=== PATIENT | female | born 1975 | race Caucasian/White ===

== ENCOUNTER 2018-07-05 15:10 | Emergency (ER) | END 2018-07-05 18:58 | disposition home or self-care (01) ==

== ENCOUNTER → 2019-02-19 | Emergency (ER) | payer MEDICAID ==
[~2019-02-19] VITALS: Ht 162.6 cm; Wt 62.2 kg
[~2019-02-19] MED LIST: DOCU-144 PO; FLUC150T PO; GLYC1SUP92 PR; MAGN296S40 PO; POLY17PO6 PO
[2019-02-19 13:44] VITALS: BP 158/77; PULSE 72; RESP 16; Ht 162.6 cm; Wt 62.2 kg
--- NOTE | 2019-02-19 13:47 | EN ---
Date/Time of Note Date/Time of Note DATE: 02/19/19 TIME: 13:47 ER Progress Note 44-year-old female presents with 3-day history dysuria and complaints of constipation. Well-appearing. ED 2 appropriate. SHARIFA WEBB MD Feb 19, 2019 13:47
--- NOTE | 2019-02-19 13:50 | ERD ---
ER Documentation Chief Complaint Chief Complaint pt c/o dysuria and constipation x 3 days HPI The patient is a 44-year-old female, presenting to the ER because of constipation, dysuria for 3 days, had similar symptoms previously, denies fever, chills, neck pain, chest pain, dyspnea, vomiting, diarrhea. She does not smoke, drinks socially, recently finished her menses yesterday Medical/surgical history: None ROS All systems reviewed and are negative except as per history of present illness. Medications Home Meds Active Scripts Fluconazole* (Diflucan*) 150 Mg Tablet, 150 MG PO ONCE, #2 TAB Prov:SADAF DUNHAM PA-C 07/05/18 Allergies Allergies: Coded Allergies: No Known Allergy (Unverified , 07/05/18) PMhx/Soc Hx Alcohol Use: No Hx Substance Use: No Hx Tobacco Use: No Physical Exam Vitals Vital Signs Date Temp Pulse Resp B/P (MAP) Pulse Ox O2 O2 Flow FiO2 Time Delivery Rate 02/19/19 98.1 72 16 158/77 98 13:44 (104) Physical Exam Const: No acute distress. Head: Atraumatic. Eyes: Normal Conjunctiva. ENT: Normal External Ears, Nose and Mouth. Neck: Full range of motion. No meningismus. Resp: Clear to auscultation bilaterally. Cardio: Regular rate and rhythm. Abd: Soft, non distended, normal bowel sounds, non tender. Skin: No petechiae or rashes. Back: No midline or flank tenderness. Ext: No cyanosis, or edema. Neur: Awake and alert. No focal deficit Psych: Normal Mood and Affect. Results 24 hrs Laboratory Tests Test 02/19/19 14:15 02/19/19 14:17 POC Beta HCG, Qualitative NEGATIVE Bedside Urine pH (LAB) 6.0 Bedside Urine Protein (LAB) Negative Bedside Urine Glucose (UA) Negative Bedside Urine Ketones (LAB) Negative Bedside Urine Blood Trace-intact Bedside Urine Nitrite (LAB) Negative Bedside Urine Leukocyte Esterase (L Trace Procedures/MDM MEDICAL MAKING DECISION: The patient is a 44-year-old female, presenting with constipation and dysuria, she does not have acute cystitis, she is stable for outpatient follow-up The differential diagnoses considered include but are not limited to cholelithiasis, cholecystitis, choledocholithiasis, cholangitis, pancreatitis, hepatitis, gastritis, peptic ulcer disease, gastric ulcer, appendicitis, cystitis, diverticulitis, partial small bowel obstruction. Departure Diagnosis: Primary Impression: Constipation Condition: Good Comments She was discharged with MiraLAX I discussed the findings with the patient. I advised the patient to follow-up with the primary physician in about 1-2 days, sooner if needed and return if any concern. Disclaimer: Inadvertent spelling and grammatical errors are likely due to EHR/dictation software use and do not reflect on the overall quality of patient care. Also, please note that the electronic time recorded on this note does not necessarily reflect the actual time of the patient encounter. NETO MACIEL MD Feb 19, 2019 13:50
== END | disposition home or self-care (01) ==
LOC: FTE 13:40
DX: K59.00 Constipation, unspecified (principal)
CPT/HCPCS: 81003; 81025; Z7502; 99282

== ENCOUNTER 2019-02-22 14:09 | Emergency (ER) | payer MEDICAID ==
[~2019-02-22] VITALS: Ht 160 cm; Wt 61.9 kg
[2019-02-22 14:14] VITALS: BP 131/69; PULSE 89; RESP 18; Ht 160 cm; Wt 61.9 kg
--- NOTE | 2019-02-22 14:40 | ERD ---
ER Documentation Chief Complaint Chief Complaint constipation x few days. states small bm today HPI 44-year-old female is here with constipation. She was seen here 3 days ago and given MiraLAX which she did state helps and states today she had a small bowel movement mild abdominal pain. No vomiting. No fever. ROS All systems reviewed and are negative except as per history of present illness. Medications Home Meds Active Scripts Magnesium Citrate* (Magnesium Citrate*) 296 Ml Solution, 150 ML PO ONCE, #1 BOTTLE Prov:CARMEN CRAFT PA-C 02/22/19 Glycerin* (Glycerin (Adult)*) 1 Each Supp.rect, 1 EACH NE DAILY PRN for CONSTIPATION for 5 Days, SUPP.RECT Prov:CARMEN CRAFT PA-C 02/22/19 Docusate Sodium* (Colace*) 100 Mg Capsule, 100 MG PO TID, #30 CAP Prov:CARMEN CRAFT PA-C 02/22/19 Polyethylene Glycol* (Miralax*) 17 Gm Powd.pack, 17 GM PO DAILY, #7 Prov:NETO MACIEL MD 02/19/19 Fluconazole* (Diflucan*) 150 Mg Tablet, 150 MG PO ONCE, #2 TAB Prov:SADAF DUNHAM PA-C 07/05/18 Allergies Allergies: Coded Allergies: No Known Allergy (Unverified , 07/05/18) PMhx/Soc Hx Alcohol Use: No Hx Substance Use: No Hx Tobacco Use: No Smoking Status: Unknown if ever smoked FmHx Family History: No diabetes Physical Exam Vitals Vital Signs Date Temp Pulse Resp B/P (MAP) Pulse Ox O2 O2 Flow FiO2 Time Delivery Rate 02/22/19 98.6 89 18 131/69 98 14:14 (89) Physical Exam INITIAL VITAL SIGNS: Reviewed by me GENERAL: Awake, alert and oriented x 4, well appearing, nontoxic, speaking in full sentences. No acute distress HEAD: Atraumatic RESPIRATORY: Clear to auscultation bilaterally. Symmetric chest wall rise. No wheezing or rales. No accessory muscle use. CV: Regular rate and rhythm. No murmurs, rubs, or gallops. ABDOMEN: Soft, non-distended. Nontender. Negative [place]. Negative McBurneys point tenderness. No CVA tenderness bilaterally. No guarding. No rebound. Procedures/MDM Patient did have a bowel movement today. Her abdomen is soft and nontender. She is afebrile. I doubt she has an obstruction. Prescription for glycerin suppositories, magnesium citrate, and Colace given. Also recommended increasing water intake. Patient counseled regarding my diagnostic impression and care plan. Prior to discharge all questions answered. Pt agrees with treatment plan and understands strict return precautions. Pt is instructed to follow up with primary care provider within 24-48 hours. Precautionary instructions provided including instructions to return to the ER if not improving or for any worsening or changing symptoms or concerns. Departure Diagnosis: Primary Impression: Constipation Condition: Stable Patient Instructions: Constipation (Adult) Additional Instructions: Call your primary care doctor TOMORROW for an appointment during the next 1-2 days.See the doctor sooner or return here if your condition worsens before your appointment time. CARMEN CRAFT PA-C Feb 22, 2019 14:40
== END 2019-02-22 15:00 | disposition home or self-care (01) ==
LOC: FTE 14:09
DX: K59.00 Constipation, unspecified (principal)
CPT/HCPCS: 99282